=== PATIENT | male | born 1955 | race Caucasian/White ===

== ENCOUNTER → 2018-04-12 | Outpatient (CLI) | payer OTHER, MEDICARE | DX: I48.91 Unspecified atrial fibrillation (principal) ==

== ENCOUNTER 2018-07-06 07:07 | Day surgery (SDC) | payer OTHER, MEDICARE ==
[2018-07-06] MEDS ORDERED: LIDOCAINE 1% 300 MG/30 ML SDV SC ONE (07:43)
--- NOTE | 2018-07-06 07:57 | PDGENHP ---
History & Physical Chief Complaint: Distant history of atrial fibrillation. History of Present Illness: Distant history of atrial fibrillation. Concern for recurrent episodes of atrial fibrillation that might trigger the need for systemic anticoagulation. Pertinent Past, Social, Family History: None. Relevant Physical Exam: Regular rate and rhythm, clear lungs. Cardiorespiratory Assessment: Stable for implantation of [employer] LINQ.
--- NOTE | 2018-07-06 10:24 | CPIP ---
DATE OF PROCEDURE: 07/06/2018 PROCEDURE: Medtr[employer] LINQ implantation. INDICATIONS: The patient has a history of paroxysmal atrial fibrillation. He had a single episode o f atrial fibrillation in the distant past. He has an elevated VICTOR HUGO VASc score that might indicate th e need for systemic anticoagulation. Previous outpatient monitoring was unrevealing. He is referred for LINQ implantation to evaluate for recurrent episodes of atrial fibrillation. PROCEDURE: Following informed consent and in the fasting state, he was brought to the [facility]. The [facility] t was prepped and draped in usual sterile fashion. The 4th intercostal space was identified by cassandra macias. Lidocaine was infiltrated into the skin near the 4th intercostal space. A 1 cm incision was t hen made. The LINQ was then injected underneath the skin. The wound was then closed with 2 asael. Steri-Strips and a dry dressing were applied. DEVICE INFORMATION: This is a [employer] LINQ, model number LNQ11, serial number [id number]. FOLLOWUP: Patient to follow up in office in 5 days. /[id number]/MODL
== END 2018-07-06 08:53 | disposition home or self-care (01) ==
LOC: FCATH 07:07
PROVIDERS: ATTEND Internal Medicine Cardiovascular Disease
PROC: 0JH602Z Insertion of Monitoring Device into Chest Subcutaneous Tissue and Fascia, Open Approach (ICD-10-PCS; principal; 2018-07-06)
DX: I48.0 Paroxysmal atrial fibrillation (principal); I10 Essential (primary) hypertension; K21.9 Gastro-esophageal reflux disease without esophagitis; G47.33 Obstructive sleep apnea (adult) (pediatric); Z79.899 Other long term (current) drug therapy
CPT/HCPCS: C1764

== ENCOUNTER → 2018-11-17 | Outpatient (CLI) | payer OTHER, MEDICARE | LOC: BHFA 16:15 | PROVIDERS: ATTEND Internal Medicine Cardiovascular Disease | DX: I48.91 Unspecified atrial fibrillation (principal) ==